=== PATIENT | female | born 1960 | race Caucasian/White ===

== ENCOUNTER 2018-10-22 09:06 | Emergency (ER) | payer MEDICAID ==
[~2018-10-22] VITALS: Ht 175.3 cm; Wt 99.8 kg
[2018-10-22 09:15] VITALS: Ht 175.3 cm; Wt 99.8 kg
[2018-10-22 11:10] VITALS: BP 120/66
== END 2018-10-22 11:10 | disposition home or self-care (01) ==
LOC: ED 09:06
DX: J40 Bronchitis, not specified as acute or chronic (principal); I11.0 Hypertensive heart disease with heart failure; I50.9 Heart failure, unspecified; E11.9 Type 2 diabetes mellitus without complications; E78.00 Pure hypercholesterolemia, unspecified

== ENCOUNTER 2019-05-15 13:48 | Inpatient (IN) | payer MEDICAID ==
[~2019-05-15] VITALS: Ht 172.7 cm; Wt 96.0 kg
[2019-05-15 13:52] VITALS: Ht 172.7 cm; Wt 96.0 kg
[2019-05-15 14:24] LABS: CALCIUM 9.7 mg/dL (8.5-10.1); CARBON DIOXIDE 22.3 mmol/L (21-32); CREATININE SERUM 1.4 mg/dL (0.6-1.0)
[2019-05-15 14:25] LABS: BASOPHIL % 0.5 % (0-2); PLATELET COUNT 300 x10^3mcL (130-400); RED CELL DISTRIBUTION WIDTH 13.2 % (11.5-14.5)
[2019-05-15 14:29] LABS: ALBUMIN 3.6 g/dL (3.4-5.0); BILIRUBIN TOTAL 0.7 mg/dL (0.20-1.00); TOTAL PROTEIN, SERUM 6.8 g/dL (6.4-8.2)
[2019-05-15] MEDS ORDERED: MULTAQ400 MG PO (15:24)
[2019-05-15] MEDS ORDERED: ELIQUIS5 MG PO (15:24)
[2019-05-15] MEDS ORDERED: ATORVASTATIN CA40 M1 PO (15:24)
[2019-05-15] MEDS ORDERED: CYMBALTA60 M1 PO (15:25)
[2019-05-15] MEDS ORDERED: LOPRESSOR50 M1 PO (15:25)
[2019-05-15] MEDS ORDERED: HYDRALAZINE HCL25 MG PO (15:25)
[2019-05-15] MEDS ORDERED: FERROUS SULFAT325 M2 PO (15:25)
[2019-05-15] MEDS ORDERED: D-10001 TAB PO (15:26)
[2019-05-15 16:36] LABS: CHOLESTEROL/HDL RATIO 5.7; MAGNESIUM 1.7 mg/dL (1.8-2.4); PHOSPHOROUS 4.9 mg/dL (2.5-4.9)
[2019-05-15 17:11] VITALS: BP 120/74
[2019-05-15 17:28] VITALS: BP 126/85
[2019-05-15 17:40] VITALS: BP 126/85
[2019-05-15 19:15] VITALS: BP 107/67
[2019-05-15 23:04] VITALS: BP 105/67
[2019-05-16 03:01] VITALS: BP 106/74
[2019-05-16 05:01] LABS: PLATELET COUNT 241 x10^3mcL (130-400); RED CELL DISTRIBUTION WIDTH 13.3 % (11.5-14.5)
[2019-05-16 05:26] LABS: CALCIUM 9.6 mg/dL (8.5-10.1); CARBON DIOXIDE 25.7 mmol/L (21-32); CREATININE SERUM 1.4 mg/dL (0.6-1.0); MAGNESIUM 1.8 mg/dL (1.8-2.4); PHOSPHOROUS 4.8 mg/dL (2.5-4.9); POTASSIUM SERUM 4.7 mmol/L (3.5-5.1)
[2019-05-16 08:00] VITALS: BP 146/81
[2019-05-16 09:08] LABS: UA SPECIFIC GRAVITY <=1.005 (1.005-1.035); microscopic required? YES; urine erythrocyte 1+ (NEGATIVE)
[2019-05-16 09:36] LABS: AMPHETAMINE QUAL UR NONE DETECTED (See below)
[2019-05-16 11:59] VITALS: BP 127/67
[2019-05-16 15:28] VITALS: BP 140/92
[2019-05-16 20:20] VITALS: BP 160/98
[2019-05-16 23:02] VITALS: BP 157/84
[2019-05-17 03:11] VITALS: BP 164/122
[2019-05-17 05:16] LABS: BASOPHIL % 0.5 % (0-2); PLATELET COUNT 237 x10^3mcL (130-400); RED CELL DISTRIBUTION WIDTH 13.1 % (11.5-14.5)
[2019-05-17 05:34] LABS: CALCIUM 9.1 mg/dL (8.5-10.1); CARBON DIOXIDE 25.9 mmol/L (21-32); CREATININE SERUM 1.2 mg/dL (0.6-1.0); MAGNESIUM 1.6 mg/dL (1.8-2.4); PHOSPHOROUS 4.1 mg/dL (2.5-4.9); POTASSIUM SERUM 4.3 mmol/L (3.5-5.1)
[2019-05-17 09:25] VITALS: BP 138/88
[2019-05-17 15:28] LABS: FREE T4 1.55 ng/dL (0.76-1.46); FREE THYROXINE INDEX 4.2 ug/dL (1.4-4.5); T4(THYROXINE) 11.1 ug/dL (4.7-13.3)
[2019-05-17 19:31] VITALS: BP 121/65
[2019-05-17 22:54] LABS: T3 TOTAL 1.1 ng/mL
[2019-05-17 23:07] VITALS: BP 163/96
[2019-05-18] VITALS (7 sets, daily range): BP systolic 110–150; BP diastolic 65–99
[2019-05-18 04:43] LABS: BASOPHIL % 1.4 % (0-2); PLATELET COUNT 211 x10^3mcL (130-400); RED CELL DISTRIBUTION WIDTH 13.4 % (11.5-14.5)
[2019-05-18 04:52] LABS: CALCIUM 9.4 mg/dL (8.5-10.1); CHLORIDE SERUM 105 mmol/L (98-107); GFR1 > 60 mL/min; GLUCOSE SERUM 179 mg/dL (74-106); MAGNESIUM 1.8 mg/dL (1.8-2.4); PHOSPHOROUS 3.5 mg/dL (2.5-4.9); POTASSIUM SERUM 4.3 mmol/L (3.5-5.1); SODIUM SERUM 139 mmol/L (136-145)
[2019-05-19 03:35] VITALS: BP 134/70
[2019-05-19 04:32] LABS: BASOPHIL % 0.8 % (0-2); PLATELET COUNT 188 x10^3mcL (130-400); RED CELL DISTRIBUTION WIDTH 13.7 % (11.5-14.5)
[2019-05-19 04:40] LABS: CALCIUM 9.3 mg/dL (8.5-10.1); CARBON DIOXIDE 27.9 mmol/L (21-32); CREATININE SERUM 1.1 mg/dL (0.6-1.0); MAGNESIUM 1.6 mg/dL (1.8-2.4); POTASSIUM SERUM 4.2 mmol/L (3.5-5.1)
[2019-05-19 08:00] VITALS: BP 130/69
[2019-05-19 12:26] VITALS: BP 105/66
[2019-05-19 15:03] VITALS: BP 138/72
[2019-05-19 19:00] VITALS: BP 148/68
[2019-05-20 00:09] VITALS: BP 152/94
[2019-05-20 05:39] VITALS: BP 128/73
[2019-05-20 06:32] LABS: BASOPHIL % 0.8 % (0-2); PLATELET COUNT 200 x10^3mcL (130-400); RED CELL DISTRIBUTION WIDTH 13.4 % (11.5-14.5)
[2019-05-20 06:48] LABS: CALCIUM 9.2 mg/dL (8.5-10.1); CREATININE SERUM 1.1 mg/dL (0.6-1.0); MAGNESIUM 1.6 mg/dL (1.8-2.4); PHOSPHOROUS 3.9 mg/dL (2.5-4.9); POTASSIUM SERUM 4.2 mmol/L (3.5-5.1)
[2019-05-20 07:50] VITALS: BP 142/81
[2019-05-20 12:09] VITALS: BP 137/86
[2019-05-20] MEDS ORDERED: DIGOXIN0.125 M1 PO (13:20)
[2019-05-20] MEDS ORDERED: PROPRANOLOL HCL60 M1 PO (13:22)
[2019-05-20] MEDS ORDERED: CARCD120 PO (13:23)
[2019-05-20] MEDS ORDERED: TAP5 PO (14:28)
[2019-05-20 15:21] VITALS: BP 137/86
== END 2019-05-20 17:36 | disposition home or self-care (01) | DRG 201 ==
LOC: ED 13:48 → IC 15:15 → DU 05-19 22:20
PROVIDERS: Emergency Medicine; ADMIT General Practice
DX: I48.0 Paroxysmal atrial fibrillation (principal); N17.0 Acute kidney failure with tubular necrosis; I50.42 Chronic combined systolic (congestive) and diastolic (congestive) heart failure; E83.42 Hypomagnesemia; E11.65 Type 2 diabetes mellitus with hyperglycemia; E05.90 Thyrotoxicosis, unspecified without thyrotoxic crisis or storm; I11.0 Hypertensive heart disease with heart failure; E78.5 Hyperlipidemia, unspecified; F32.9 Major depressive disorder, single episode, unspecified; F12.10 Cannabis abuse, uncomplicated; E66.9 Obesity, unspecified; Z68.31 Body mass index [BMI] 31.0-31.9, adult; Z87.891 Personal history of nicotine dependence; Z86.73 Personal history of transient ischemic attack (TIA), and cerebral infarction without residual deficits; Z86.14 Personal history of Methicillin resistant Staphylococcus aureus infection; Z79.01 Long term (current) use of anticoagulants
CPT/HCPCS: 82962; 83880; 84439; G0378; J0282; J1160; J1815; J3475; J3490; J7030; Q0092

== ENCOUNTER 2019-07-11 13:46 | Inpatient (IN) | payer MEDICAID ==
[~2019-07-11] VITALS: Ht 175.3 cm; Wt 87.1 kg
[~2019-07-11 13:46] MED LIST: ATORVASTATIN CA40 M1 PO; CARCD120 PO; CYMBALTA60 M1 PO; D-10001 TAB PO; DIGOXIN0.125 M1 PO; ELIQUIS5 MG PO; FERROUS SULFAT325 M2 PO; HYDRALAZINE HCL25 MG PO; LOPRESSOR50 M1 PO; MULTAQ400 MG PO; PROPRANOLOL HCL60 M1 PO; TAP5 PO
[2019-07-11 13:50] VITALS: Ht 175.3 cm; Wt 87.1 kg
--- NOTE | 2019-07-11 14:14 | NUR ---
INFORMED DR MOTT REGARDING HBP
--- NOTE | 2019-07-11 14:15 | NUR ---
DR MOTT AT BEDSIDE FOR MSE. PT HERE FOR C/O SENSATION OF PALP SINCE YESTERDAY NOON. PT STS "I THOUGHT I COULD TAKE IT BUT I JUST DECIDED TO COME IN." PT REPORTS ONSET OF DIZZINESS, SOB, WHEN WALKING. PT DENIES CP
--- NOTE | 2019-07-11 14:27 | NUR ---
XR AT BEDSIDE
[2019-07-11 14:32] LABS: BASOPHIL % 0.8 % (0-2); PLATELET COUNT 246 x10^3mcL (130-400); RED CELL DISTRIBUTION WIDTH 13.7 % (11.5-14.5)
[2019-07-11 14:40] LABS: CALCIUM 9.2 mg/dL (8.5-10.1); CARBON DIOXIDE 22.8 mmol/L (21-32); CREATININE SERUM 1.2 mg/dL (0.6-1.0)
[2019-07-11 14:45] LABS: ALBUMIN 3.6 g/dL (3.4-5.0); BILIRUBIN TOTAL 0.7 mg/dL (0.20-1.00); TOTAL PROTEIN, SERUM 6.9 g/dL (6.4-8.2)
[2019-07-11 15:00] LABS: T3 TOTAL 1.2 ng/mL
[2019-07-11 15:09] LABS: FREE T4 1.2 ng/dL (0.76-1.46); FREE THYROXINE INDEX 2.9 ug/dL (1.4-4.5)
--- NOTE | 2019-07-11 15:19 | NUR ---
DR MOTT SPOKE TO PT REGARDING POC
--- NOTE | 2019-07-11 16:45 | NUR ---
NO CHANGES. PT GIVEN WARM BLANKET PER HER REQUEST
--- NOTE | 2019-07-11 17:50 | NUR ---
FAM AT BEDSIDE. NO CHANGES
--- NOTE | 2019-07-11 17:54 | NUR ---
REPORT GIVEN TO MARISSA GARNER NURSE
[2019-07-11 18:32] LABS: CHOLESTEROL 148 mg/dL (<200); MAGNESIUM 1.6 mg/dL (1.8-2.4); PHOSPHOROUS 3.4 mg/dL (2.5-4.9)
[2019-07-11 18:34] LABS: CHOLESTEROL/HDL RATIO 5.5; HDL CHOLESTEROL 27 mg/dL (40-60); TRIGLYCERIDES 573 mg/dL (<150)
[2019-07-11 18:37] VITALS: BP 226/109
--- NOTE | 2019-07-11 18:48 | NUR ---
RECEIVED PT FROM ER, PT ADMIT FOR PALPIATION, HTN, PT IS A/O X4, VERBAL RESPONSIVE, ABLE TO TELL WHAT SHE NEEDS. DENY ANY HEADACHE OR DIZZINESS AT THIS MOMENT, PT IS ON TELE 8, A.FIB, DENY ANY CHEST PAIN OR PALPITATION AT THIS MOMENT, PT STATE HER PALPITATION COMES AND GOES. BOWEL SOUND PRESENT ALL 4 QUADRANTS, NO DISTENTION, NO TENDER. PEDAL PULSE PRESENT BOTH FEET, NO EDEMA, IV AT LEFT FA, NO LEAKING, NO INFITLRATION. ALL ADLS ASSIST, ALL NEED MET, CALL LIGHT IN REACH, WILL CONTINUE TO MONITOR. SEND MESSAGE TO DR. FRAZIER REGARDING THE PT B/P 226/109, WAITING FOR REPLY. ENDORSE ALL INFORMATINO TO PRIMARY NURSE.
--- NOTE | 2019-07-11 18:50 | NUR ---
ASSUME CARE AND REPORT FROM SATYA PLASENCIA RN, PT IN NO ACUTE RESP DISTRESS, TELE #8, DENIED PAIN/CP/GARDUNO, DENIED N/V/D, AXOXO4, DINNER SERVED AT BEDSIDE, TAKEN WELL, GOOD APPETITE, ALL NEEDS ADDRESSED AT THIS TIME, SAFETY PROTOCOL FOLLOWED, WILL CONTINUE TO MONITOR
--- NOTE | 2019-07-11 18:53 | NUR ---
REPORT GIVEN TO MARY ANNE JOHNSON NIGHTSHIFT, PT IN NO ACUTE DISTRESS
--- NOTE | 2019-07-11 19:40 | NUR ---
RECEIVED PT IN BED AAO X4 VERBAL, DENIES PAIN WITH ON AND OFF PALPITATIONS, NO CP, SR IN THE MONITOR HR 75 TELE #8 INPLACED, RECHECKED BP POST VASOTEC IV BP TREND DOWN TO 179/77(104) NO C/O HEADACHE OR DIZZINESS, NO FACIAL DROOPING, GOOD EQUAL HANDGRIPS, PER PT SHE ALWAYS HAVE ELEVATED BP BUT NOT THAT HIGH THAT WILL REACH >200, CURRENT BP THAT WAS JUST TAKEN IS WITHIN HER LIMITS, IVF INFUSING WELL ORDERED, SHIFT ASSESSMENT DONE ATTENDED NEEDS CALL LIGHT AT REACH, CONT TO MONITOR.
--- NOTE | 2019-07-11 21:48 | NUR ---
PT WITH IRREGULAR HEART RHYTHM SHOWN IN THE MONITOR FROM SR TO DEPRESSED ST SEGMENT AND OCC JUNCTIONAL RHYTHM, NO CP OR PRESSURE, MD AWARE, PT ALSO ELEVATED BLD PRESSURE, METOPROLOL AND CLONIDINE ORDERED, WILL CONT TO MONITOR.
[2019-07-11 21:58] VITALS: BP 192/77
[2019-07-11 23:43] VITALS: BP 170/74
--- NOTE | 2019-07-11 23:44 | NUR ---
RECHECKED BP HOUR AFTER GIVING METOPROLOL AND CLONIDINE, 170/71 HR 63 PT REMAINED ASYMTOMATIC, DENIES PALPITATIONS AT THIS TIME, CONT TO MONITOR.
[2019-07-12] VITALS (9 sets, daily range): BP systolic 150–182; BP diastolic 65–77
--- NOTE | 2019-07-12 07:00 | NUR ---
PT'S BP 173/66, HR 55, REMAINED ASYMTOMATIC, BS 263 COVERED WITH 9UNITS REG INSULIN, DENIES PAIN, SLEPT WELL DURING THE SHIFT, WILL ENDORSE TO INCOMING SHIFT FOR F/U CARE.
[2019-07-12 07:03] LABS: BASOPHIL % 0.5 % (0-2); PLATELET COUNT 213 x10^3mcL (130-400); RED CELL DISTRIBUTION WIDTH 13.8 % (11.5-14.5)
[2019-07-12 07:17] LABS: CALCIUM 9.4 mg/dL (8.5-10.1); CARBON DIOXIDE 27.7 mmol/L (21-32); CREATININE SERUM 1.1 mg/dL (0.6-1.0)
--- NOTE | 2019-07-12 07:26 | NUR ---
ASSUMED CARE OF PATIENT. SEEN RESTING THIS MORNING WITH EQUAL AND UNLABORED RESPIRATIONS. NO APPARENT DISTRESS NOTED.IV ON LFA PATENT AND INFUSING NS AT 50 ML/HR. WILL CONTINUE TO MONITOR.
--- NOTE | 2019-07-12 08:33 | NUR ---
APICAL HR 56. METOPROLOL AND DIGOXIN HELD AT THIS TIME. PLAN TO RECHECK IN ABOUT 1 HOUR.
--- NOTE | 2019-07-12 09:41 | NUR ---
PATIENT BP 168/77, APICAL HEART RATE 54. METOPROLOL AND DIGOXIN HELD PER PARAMETERS. PRN CLONIDINE PROVIDED FOR BP >160
--- NOTE | 2019-07-12 10:33 | NUR ---
PER TELE, PATIENT HAD MOMENT OF PROLONGED QT. PATIENT HAD JUST AMBULATED TO BATHROOM, REMAINS ASYMPTOMATIC.
--- NOTE | 2019-07-12 13:28 | NUR ---
BP 150/65. PATIENT REMAINS ASYMPTOMATIC, DENYING ANY CP OR PRESSURE. NO APPARENT DISTRESS NOTED. NO NEW ISSUES.
--- NOTE | 2019-07-12 15:33 | NUR ---
PATIENT SEEN RESTING IN BED WITH NO COMPLAINTS OF PAIN OR DISCOMFORT. NO COMPLAINTS OF CP OR PRESSURE. NO APPARENT DISTRESS NOTED. NO NEW ISSUES.
--- NOTE | 2019-07-12 16:35 | NUR ---
12 UNITS REGULAR INSULIN COVERAGE PER SLIDING SCALE PROVIDED FOR BS OF 311.
--- NOTE | 2019-07-12 17:35 | NUR ---
BP 186/70, PRN CLONIDINE PROVIDED.
--- NOTE | 2019-07-12 18:47 | NUR ---
PATIENT SEEN RESTING IN BED WITH NO COMPLAINTS OF PAIN OR DISCOMFORT. NO COMPLAINTS OF CP OR PRESSURE. IV REMIANS SALINE LOCKED. WILL ENDORSE CARE TO ONCOMING RN.
--- NOTE | 2019-07-12 20:34 | NUR ---
RESIDENT IN BED AWAKE WATCHING TV, AAO X4 VERBAL NO FACIAL DROOPING EQUAL HANDGRIPS, NO HEADACHE OR DIZZINESS, NO DISTRESS LUNGS CTA, IV ACCESS ON HEPLOCK FLUSHING WELL NON INFIL, TELE #8 INPLACED SR WITH DEPRESSED ST, NO CP NO PALPITATIONS, BP 165/75, HR 64, SHIFT ASSESSMENT DONE, ATTENDED NEEDS CALL LIGHT AT REACH, REMINDED PT TO ALWAYS CALL FOR ASSISTANCE MAGDA DURING AMBULATION, CONT TO MONITOR.
--- NOTE | 2019-07-12 23:00 | NUR ---
RECHECKED BP 160/65, PT REMAINED ASYMTOMATIC, SR IN THE MONITOR HR 72, PT DENIES ANY PALPITATIONS, WILL MONITOR.
[2019-07-13 05:19] VITALS: BP 173/65
--- NOTE | 2019-07-13 06:14 | NUR ---
PT SLEPT WELL DURING THE SHIFT, DENIES PAIN OR DISCOMFORTS. BP 173/65, HR 55 HTN MEDS DUE THIS MORNING GIVEN ORDERED, BS 229 MG/DL COVERED WITH 6UNITS REG INSU PER SLIDING SCALE, ATTENDED NEEDS CALL LIGHT REACH, WILL ENDORSE TO INCOMING SHIFT FOR F/U CARE.
[2019-07-13 06:22] LABS: BASOPHIL % 0.4 % (0-2); PLATELET COUNT 208 x10^3mcL (130-400); RED CELL DISTRIBUTION WIDTH 13.7 % (11.5-14.5)
[2019-07-13 06:53] LABS: CALCIUM 8.5 mg/dL (8.5-10.1); CARBON DIOXIDE 27.2 mmol/L (21-32); CREATININE SERUM 1.1 mg/dL (0.6-1.0); MAGNESIUM 1.6 mg/dL (1.8-2.4); PHOSPHOROUS 3.9 mg/dL (2.5-4.9)
--- NOTE | 2019-07-13 07:22 | NUR ---
ASSUMED CARE OF PATIENT. AWAKE AND ALERT THIS MORNIGN. NO COMPLAINTS OF PAIN OR DISCOMFORT. NO CP OR PRESSURE. NO APPARENT DISTRESS NOTED. IV SALINE LOCKED AT THIS TIME. WILL CONTINUE TO MONITOR.
[2019-07-13 08:15] VITALS: BP 147/55
--- NOTE | 2019-07-13 09:05 | NUR ---
PATIENT SEEN IN ROOM WITH NO COMPLAINTS OF PAIN OR DISCOMFRORT. NO APPARENT DISTRESS NOTED. NO CP OR PRESSURE. NO NEW ISSUES.
[2019-07-13] MEDS ORDERED: LISINOPRIL10 MG PO (10:51)
[2019-07-13] MEDS ORDERED: HYDRALAZINE HY100 MG PO (10:52)
[2019-07-13 10:59] VITALS: BP 147/55
--- NOTE | 2019-07-13 11:25 | NUR ---
DISCHARGE PAPERWORK AND EDUCATION PROVIDED. IV D/C WITH [facility] INTACT. REQUESTING DOCTORS NOTE TO RETURN WORK ON SUNDAY. DR.MAI MEDELLIN.
--- NOTE | 2019-07-13 12:06 | NUR ---
ID BAND AND TELEMONITOR REMOVED.
--- NOTE | 2019-07-13 12:17 | NUR ---
PATIENT DISCHARGED VIA WHEELCHAIR. NO COMPLAINTS OF PAIN OR DISCOMFORT. NO APPARENT DISTRESS NOTED. ALL BELONGINGS WITH PATIENT.
== END 2019-07-13 12:12 | disposition home or self-care (01) | DRG 469 ==
LOC: ED 13:46 → DU 17:09
PROVIDERS: Emergency Medicine; ADMIT Internal Medicine
DX: N17.0 Acute kidney failure with tubular necrosis (principal); E11.22 Type 2 diabetes mellitus with diabetic chronic kidney disease; I50.32 Chronic diastolic (congestive) heart failure; I13.0 Hypertensive heart and chronic kidney disease with heart failure and stage 1 through stage 4 chronic kidney disease, or unspecified chronic kidney disease; E11.65 Type 2 diabetes mellitus with hyperglycemia; I47.1 Supraventricular tachycardia; E83.42 Hypomagnesemia; I16.0 Hypertensive urgency; N18.9 Chronic kidney disease, unspecified; E78.5 Hyperlipidemia, unspecified; E03.9 Hypothyroidism, unspecified; E66.3 Overweight; Z68.28 Body mass index [BMI] 28.0-28.9, adult; Z86.73 Personal history of transient ischemic attack (TIA), and cerebral infarction without residual deficits
CPT/HCPCS: 82962; 83880; 84439; C9113; G0378; J3490; J7030; Q0092

== ENCOUNTER 2020-04-13 12:30 | Emergency (ER) | payer OTHER ==
[~2020-04-13] VITALS: Ht 172.7 cm; Wt 80.3 kg
[~2020-04-13 12:30] MED LIST changes: +HYDRALAZINE HY100 MG PO; +LISINOPRIL10 MG PO
[2020-04-13 12:41] VITALS: Ht 172.7 cm; Wt 80.3 kg
[2020-04-13 14:06] LABS: PLATELET COUNT 282 x10^3mcL (130-400); RED CELL DISTRIBUTION WIDTH 12.5 % (11.5-14.5)
[2020-04-13 14:11] LABS: microscopic required? YES; urine erythrocyte TRACE (NEGATIVE)
[2020-04-13 14:58] LABS: BAND NEUTROPHIL 1 % (0-10); BASOPHIL 0 % (0-2); MONOCYTE 6 % (0-7); SEGMENTED NEUTROPHILS 70 % (37-75); T3 TOTAL 0.93 ng/mL
[2020-04-13 14:59] LABS: rbc morphology (normal/abnorm) NORMAL (NORMAL)
[2020-04-13 15:07] LABS: PLATELET MORPHOLOGY PLATELETS INCREASED
[2020-04-13 15:17] LABS: ALBUMIN 3.9 g/dL (3.4-5.0); ALKALINE PHOSPHATASE 130 U/L (46-116); ALT/SGPT 59 U/L (14-59); AST/SGOT 43 U/L (15-37); BILIRUBIN TOTAL 0.83 mg/dL (0.20-1.00); CALCIUM 10.1 mg/dL (8.5-10.1); CARBON DIOXIDE 24.4 mmol/L (21-32); CHLORIDE SERUM 95 mmol/L (98-107); CHOLESTEROL 181 mg/dL (<200); CREATININE SERUM 1.3 mg/dL (0.6-1.0); GFR1 45 mL/min; LIPASE 237 IU/L (73-393); SODIUM SERUM 135 mmol/L (136-145); TOTAL PROTEIN, SERUM 7.2 g/dL (6.4-8.2)
[2020-04-13 15:23] LABS: FREE T4 1.15 ng/dL (0.76-1.46); FREE THYROXINE INDEX 2.6 ug/dL (1.4-4.5); T4(THYROXINE) 7.5 ug/dL (4.7-13.3)
[2020-04-13 15:44] LABS: CHOLESTEROL/HDL RATIO 9.5; HDL CHOLESTEROL 19 mg/dL (40-60); TRIGLYCERIDES 689 mg/dL (<150)
[2020-04-13 15:46] LABS: GLUCOSE SERUM 508 mg/dL (74-106)
[2020-04-13 17:45] VITALS: BP 131/75
== END 2020-04-13 17:45 | disposition home or self-care (01) ==
LOC: ED 12:30
PROVIDERS: Specialist
DX: K76.0 Fatty (change of) liver, not elsewhere classified (principal); I11.0 Hypertensive heart disease with heart failure; I50.9 Heart failure, unspecified; E11.9 Type 2 diabetes mellitus without complications; E78.00 Pure hypercholesterolemia, unspecified; I48.91 Unspecified atrial fibrillation; Z87.442 Personal history of urinary calculi
CPT/HCPCS: 82962; 83880; 84439; J1815; J1885; J2405; J7030; Q0092

== ENCOUNTER 2020-04-20 07:27 | Emergency (ER) | payer OTHER ==
[~2020-04-20] VITALS: Ht 172.7 cm; Wt 78.0 kg
[2020-04-20 07:33] VITALS: Ht 172.7 cm; Wt 78.0 kg
[2020-04-20 08:21] LABS: BASOPHIL % 0.4 % (0-2); PLATELET COUNT 181 x10^3mcL (130-400); RED CELL DISTRIBUTION WIDTH 12.1 % (11.5-14.5)
[2020-04-20 08:28] LABS: CALCIUM 8.8 mg/dL (8.5-10.1); CARBON DIOXIDE 25.8 mmol/L (21-32); CREATININE SERUM 1.2 mg/dL (0.6-1.0); POTASSIUM SERUM 3.9 mmol/L (3.5-5.1)
[2020-04-20 08:33] LABS: ALBUMIN 3.4 g/dL (3.4-5.0); BILIRUBIN TOTAL 0.9 mg/dL (0.20-1.00); TOTAL PROTEIN, SERUM 6.6 g/dL (6.4-8.2); URIC ACID 7.8 mg/dL (2.6-6.0)
[2020-04-20 08:52] LABS: UA SPECIFIC GRAVITY 1.025 (1.005-1.035); urine erythrocyte NEGATIVE (NEGATIVE)
[2020-04-20 09:33] LABS: microscopic required? YES
[2020-04-20 12:33] VITALS: BP 174/73
== END 2020-04-20 12:33 | disposition home or self-care (01) ==
LOC: ED 07:27
PROVIDERS: Emergency Medicine
DX: M54.9 Dorsalgia, unspecified (principal); R31.21 Asymptomatic microscopic hematuria; I11.0 Hypertensive heart disease with heart failure; I50.9 Heart failure, unspecified; E11.9 Type 2 diabetes mellitus without complications; Z87.442 Personal history of urinary calculi
CPT/HCPCS: J1885; J2405; J3010; J7030; Q0092